=== PATIENT | female | born 1930 | race Caucasian/White ===

== ENCOUNTER 2018-05-17 19:46 | Inpatient (IN) | payer OTHER ==
[~2018-05-17] VITALS: Ht 157.5 cm; Wt 83.0 kg
[2018-05-17] MEDS: NACL 0.9% 1,000 ML IV SCH (00:30)
[2018-05-17 20:15] VITALS: BP 123/72
--- NOTE | 2018-05-17 20:30 | NUR ---
87/F BIB CAREGIVER, C/O 01/26 LLE PAIN, RADIATING THROUGHOUT LLE, CHRONIC PAIN, WORSENING FOR A FEW DAYS. PER PT'S CAREGIVER, PT'S MD WHO IS CONTRACTED HERE AND IN [place] SENT THE PT HER FOR DIRECT TRANSFER, ER ADMITTING UNAWARE. PT DENIES FALL OR TRAUMA. PT IS PARALYZED ON LEFT SIDE OF BODY, INCLUDING L ARM AND L LEG. +1 PITTING EDEMA NOTED, +CIRCULATION, NO OBVIOUS ABNORMALITY NOTED, PT WEARS A BRACE ON LLE. PT AOX4, WHEELCHAIR ASSISTED. LUNG SOUNDS CLEAR BL. BS ACTIVE X4, ABD SOFT ROUND NONTENDER. HX STROKE (1991), HTN, TUBAL LIGATION, BENIGN BREAST LUMP REMOVAL
[2018-05-17] MEDS ORDERED: NACL 0.9% 1,000 ML IV ONE (21:00)
--- NOTE | 2018-05-17 21:40 | NUR ---
COMPOUNDING AND FINISHING SUPERVISOR AT BEDSIDE. IV AND IVF STARTED, PT TOLERATED WELL.
--- NOTE | 2018-05-17 21:49 | NUR ---
US TECH AT BEDSIDE
[2018-05-17 21:50] LABS: BASOPHILS % (AUTO) 0.5 % (0.0-2.0); EOSINOPHILS # (AUTO) 0.4 K/uL (0-0.4); HEMATOCRIT 43.4 % (36-48); HEMOGLOBIN 14.2 g/dL (12.0-16.0); LYMPHOCYTES # (AUTO) 1.9 K/uL (2.5-16.5); MEAN CORPUSCULAR HEMOGLOBIN 30 pg (27-31); MEAN CORPUSCULAR HGB CONC 33 g/dL (33-37); MEAN CORPUSCULAR VOLUME 92.2 fL (80-94); MONOCYTES # (AUTO) 0.7 K/uL (0.8-1.0); MONOCYTES % (AUTO) 7.1 % (1.7-9.3); NEUTROPHILS # (AUTO) 6.5 K/uL (1.8-7.7); NEUTROPHILS % (AUTO) 68.4 % (42.2-75.2); PLATELET COUNT (AUTO) 254 K/uL (140-450); RED BLOOD CELL COUNT(AUTO) 4.71 MIL/uL (4.20-5.40); RED CELL DISTRIBUTION WIDTH 14.6 % (11.6-13.7); WHITE BLOOD COUNT (AUTO) 9.4 K/uL (4.8-10.8)
--- NOTE | 2018-05-17 22:00 | NUR ---
# 16 FR Urinary catheter inserted utilizing sterile technique. Immediate return of 50 ml clear yellow urine noted. Urine sample collected and sent to lab. Pt tolerated procedure well.
[2018-05-17 22:06] LABS: ANION GAP 9.1 (8-16); CARBON DIOXIDE 33.2 mmol/L (21-32); CHLORIDE 102 mmol/L (98-107); CREATININE 1.1 mg/dL (0.6-1.3); GLUCOSE 105 mg/dL (74-106); POTASSIUM 4.3 mmol/L (3.5-5.1); UREA NITROGEN, BLOOD 22 mg/dL (7-18)
[2018-05-17 22:07] LABS: SODIUM SERUM 140 mmol/L (136-145)
[2018-05-17 22:12] LABS: ALBUMIN 3.2 g/dL (3.4-5.0); ASPARTATE AMINOTRANSFERASE 13 U/L (15-37); TOTAL BILIRUBIN 0.3 mg/dL (0.0-1.0)
[2018-05-17 22:13] LABS: PROTHROMBIN TIME 9.7 secs (10.8-13.4)
[2018-05-17 22:45] LABS: APPEARANCE,URINE CLEAR (CLEAR); BILIRUBIN,URINE NEGATIVE (NEGATIVE); BLOOD, URINE NEGATIVE (NEGATIVE); COLOR,URINE YELLOW (YELLOW); PH,URINE 6.5 (5.0-9.0); UGLUCOSE NEGATIVE (NEGATIVE)
[2018-05-17 22:46] LABS: LEUKOCYTE ESTERASE ,URINE NEGATIVE (NEGATIVE); NITRITE, URINE NEGATIVE (NEGATIVE)
[2018-05-17 22:47] LABS: RBC,URINE 0-5 (RARE) /HPF (0-5); WBC,URINE 0-5 (RARE) /HPF (0-5)
[2018-05-17] MEDS ORDERED: LEVOFLOXACIN 500 MG/D5W PREMIX 100 ML IV ONE (22:55)
[2018-05-17] MEDS ORDERED: ONDANSETRON 4 MG/2 ML VIAL IM/IVP PRN (23:05)
[2018-05-17] MEDS ORDERED: ACETAMINOPHEN 325 MG TAB PO PRN (23:05)
[2018-05-17] MEDS ORDERED: DOCUSATE SODIUM 100 MG GELCAP PO PRN (23:05)
[2018-05-17] MEDS ORDERED: MORPHINE SULFATE 2 MG/ML SYR IVP PRN (23:05)
[2018-05-17] MEDS ORDERED: OSC500 PO (23:35)
[2018-05-17] MEDS ORDERED: SYSTANE EYE DROPS BOTH EYES (23:35)
[2018-05-17] MEDS ORDERED: MVI WITH MINERALS PO (23:35)
[2018-05-17] MEDS ORDERED: TYL650S PO (23:35)
[2018-05-17] MEDS ORDERED: HYDR-5122 PO (23:35)
[2018-05-17] MEDS ORDERED: XALOS OP (23:35)
[2018-05-17] MEDS ORDERED: BER PO (23:35)
--- NOTE | 2018-05-17 23:35 | NUR ---
DR ANG AT BEDSIDE TO EVALUATE PT. MADE MD AWARE THAT PT HAS A POLST FOR DNR. PT STATED THAT SHE WANTS TO BE FULL CODE. ENDORSED TO BIKE TECHNICIAN.
--- NOTE | 2018-05-17 23:35 | NUR ---
ADMITTED A 87 Y/O FEMALE FROM [facility] WITH CHIEF COMPLAINT OF LEG PAIN. TRANSFERRED PATIENT TO BED WITH 3 PEOPLE ASSIST. PATIENT AA0X4, SKIN INTACT. MRSA NASAL SWAB COLLECTED AND SENT TO THE LAB. ROUTINE ADMISSION CARE DONE AND CARRY OUT ORDERS. PERSONAL BELONGINGS AT BEDSIDE. FALL PRECAUTION APPLIED. ALL NEEDS ATTENDED. WILL CONTINUE TO MONITOR.
--- NOTE | 2018-05-17 23:40 | NUR ---
Patient will be admitted to care of DR. ELAINE. Admited to TELE. Will go to room 110B. Belongings list completed. Report to EVENS CARROLL.
[2018-05-17] MEDS ORDERED: GUAI-646 PO (23:42)
[2018-05-17] MEDS ORDERED: VALS40TA3 PO (23:42)
[2018-05-17] MEDS ORDERED: GABA100C PO (23:42)
[2018-05-17] MEDS ORDERED: BACL10TA4 PO (23:42)
[2018-05-17] MEDS ORDERED: FLONAS NS (23:42)
[2018-05-17] MEDS ORDERED: METO100T14 PO (23:42)
[2018-05-17] MEDS ORDERED: MAXIDE PO (23:42)
[2018-05-17] MEDS ORDERED: DEXT1DRO4 OP (23:42)
[2018-05-17] MEDS ORDERED: ALBUTEROL SULFATE/IPRATROPIU 3 ML SOL IH PRN (23:50)
[2018-05-18] MEDS ORDERED: HYDROcodone/APAP 5/325 MG 1 TAB TAB PO SCH
[2018-05-18] MEDS ORDERED: SYSTANE EYE BOTH EYES PRN
[2018-05-18 00:35] LABS: CHOL/HDL RATIO 3.7 (1-4.5); MAGNESIUM 1.9 mg/dL (1.8-2.4); PHOSPHORUS 3.7 mg/dL (2.5-4.9)
[2018-05-18 01:32] LABS: FREE T4 (FREE THYROXINE) 1.1 ng/dL (0.76-1.46); THYROID STIMULATING HORMONE 2.86 uIU/mL (0.34-3.74)
--- NOTE | 2018-05-18 02:00 | NUR ---
SEEN PATIENT RESTING ON BED WATCHING TV. ENCOURAGE PATIENT TO USE CALL LIGHT IF SHE NEED ASSISTANCE AND VERBALIZED UNDERSTANDING. FALL PRECAUTION APPLIED. CALL LIGHT WITHIN REACH. WILL CONTINUE TO MONITOR.
[2018-05-18] MEDS: HYDROcodone/APAP 7.5/325 MG 1 TAB PO PRN ×3 (02:37→17:06)
[2018-05-18 04:00] VITALS: BP 136/52
--- NOTE | 2018-05-18 04:00 | NUR ---
V/S TAKEN AND RECORDED. AM CARE DONE. ALL NEEDS ATTENDED. NO S/S OF DISTRESS NOTED AT THIS TIME. WILL CONTINUE TO MONITOR.
--- NOTE | 2018-05-18 04:30 | NUR ---
PATIENT REFUSE CT SCAN.
--- NOTE | 2018-05-18 04:30 | NUR ---
PATIENT REFUSE CT SCAN. DR. SAV HYMAN.
[2018-05-18] MEDS: BUDESONIDE 0.25 MG/2 ML NEBU INH SCH ×2 (06:40→18:39)
--- NOTE | 2018-05-18 07:25 | NUR ---
GAVE REPORT TO AM SHIFT RN AT BEDSIDE FOR CONTINUITY OF CARE. PATIENT IN STABLE CONDITION.
--- NOTE | 2018-05-18 07:26 | NUR ---
RECEIVED BEDSIDE REPORT FROM STRAIGHT KNIFE CUTTER MACHINE NURSE. PATIENT IS AWAKE, ALERT AND ORIENTEDX4. NO SIGNS OF DISTRESS ON 3L NC. SHE IS NON AMBULATORY. WHEELCHAIR AT BEDSIDE. FALL RISK PROTOCOL IN PLACE. SHE IS INCONTINENT. SKIN IS INTACT. R AC 20G INFUSING NS AT 60, CLEAN, DRY AND INTACT. REMOVED R WRIST 22G, INFILTRATED. TIP INTACT. BED IN LOW POSITION, CALL LIGHT WITHIN REACH. WILL CONTINUE TO MONITOR THE PATIENT
--- NOTE | 2018-05-18 07:52 | NUR ---
ABG REPORTED TO DR BENÍTEZ FIO2 DECREASED TO 2L N/C
[2018-05-18 08:00] VITALS: BP 139/47
--- NOTE | 2018-05-18 08:00 | NUR ---
PATIENT SALINE LOCKED. TO GO TO CT
--- NOTE | 2018-05-18 08:13 | NUR ---
PATIENT BACK FROM CT IN STABLE CONDITION. PATIENT REPOSITION TO EAT HER BREAKFAST.
--- NOTE | 2018-05-18 08:40 | NUR ---
PATIENT HAS BEEN SCREENED AND CATEGORIZED MODERATE NUTRITION RISK. PATIENT WILL BE SEEN WITHIN 3-5 DAYS OF ADMISSION. 05/20/18 05/22/[address]
[2018-05-18] MEDS ORDERED: NON-FORMULARY ITEM (Dextran 70/Hypromellose (Artificial Tears) 1 EACH) OP SCH (09:00)
[2018-05-18] MEDS: guaiFENesin 600 MG TABER PO SCH (09:16)
[2018-05-18] MEDS: VITAMIN B COMPLEX W/C 1 TAB PO SCH (09:16)
[2018-05-18] MEDS: CALCIUM CARBONATE 500 MG TAB PO SCH (09:17)
[2018-05-18] MEDS: METOPROLOL SUCCINATE 50 MG TABER PO SCH (09:17)
[2018-05-18] MEDS: BACLOFEN 10 MG TAB PO SCH (09:17)
[2018-05-18] MEDS: GABAPENTIN 100 MG CAP PO SCH ×2 (09:17→20:37)
[2018-05-18] MEDS: FLUTICASONE NASAL 50 MCG/ACTUATION 16 GM BTL NS SCH (09:18)
--- NOTE | 2018-05-18 09:23 | NUR ---
ADMINISTERED MEDS. PATIENT TOLERATED WELL. NO SIGNS OF DISTRESS. WILL CONTINUE TO MONITOR THE PATIENT
--- NOTE | 2018-05-18 10:21 | NUR ---
PATIENT IS SLEEPING. NO SIGNS OF DISTRESS ON 2L NC. BED IN LOW POSITION. CALL LIGHT WITHIN REACH. WILL CONTINUE TO MONITOR
--- NOTE | 2018-05-18 11:12 | NUR ---
PATIENT STILL SLEEPING. BED IN LOW POSITION. CALL LIGHT WITHIN REACH. WILL CONTINUE TO MONITOR
[2018-05-18 12:00] VITALS: BP 142/63
[2018-05-18] MEDS ORDERED: REFRESH OP SCH (13:00)
--- NOTE | 2018-05-18 13:13 | NUR ---
PATIENT WANTS TO GO HOME. SHE IS TIRED OF BEING POKED, SHE SAID WE TOOK ALL HER BLOOD ALREADY AND SHE IS ALWAYS GETTING BOTHERED. SHE WANTS TO TALK TO THE DR TO TRANSFER BACK TO ALF
--- NOTE | 2018-05-18 13:40 | NUR ---
SPOKE TO THE PATIENT TO TRY TO DO THE ECHO HOWEVER PT IS VERY AGITATED AND KEPT SAYING SHE'S "TIRED OF ALL THESE TESTS AND ULTRASOUNDS BEING DONE" AND THAT SHE'S IN PAIN. I NOTIFIED DR. DUNBAR ABOUT THE SITUATION. PT SEEMS TOO AGITATED TO HAVE THE ECHO DONE AT THIS TIME, ALL SHE WANTS IS TO GO HOME.
[2018-05-18 14:43] LABS: BASOPHILS % (AUTO) 0.6 % (0.0-2.0); EOSINOPHILS # (AUTO) 0.2 K/uL (0-0.4); EOSINOPHILS % (AUTO) 2.9 % (0.0-4.0); HEMATOCRIT 42.9 % (36-48); HEMOGLOBIN 13.9 g/dL (12.0-16.0); LYMPHOCYTES # (AUTO) 1.4 K/uL (2.5-16.5); LYMPHOCYTES % (AUTO) 20.6 % (20.5-51.1); MEAN CORPUSCULAR HEMOGLOBIN 30 pg (27-31); MEAN CORPUSCULAR HGB CONC 32 g/dL (33-37); MEAN CORPUSCULAR VOLUME 92.5 fL (80-94); MONOCYTES # (AUTO) 0.4 K/uL (0.8-1.0); MONOCYTES % (AUTO) 5.9 % (1.7-9.3); NEUTROPHILS # (AUTO) 4.9 K/uL (1.8-7.7); PLATELET COUNT (AUTO) 212 K/uL (140-450); RED BLOOD CELL COUNT(AUTO) 4.64 MIL/uL (4.20-5.40); RED CELL DISTRIBUTION WIDTH 14.3 % (11.6-13.7)
--- NOTE | 2018-05-18 14:51 | NUR ---
PT REQUESTED TO GIVE HER SON ROSHAN A CALL IN [place] (#:[phone]) TO LET HIM KNOW THAT SHE IS BEING ADMITTED HERE IN [facility] AND WANTS TO SPEAK TO HIM. SPOKE WITH ROSHAN'S [id number] (PREM) AND STATED THAT ROSHAN IS WITH A CLIENT RIGHT NOW BUT SHE WILL RELAY THE MESSAGE. PT MADE AWARE, VERBALIZED UNDERSTANDING.
[2018-05-18 14:57] LABS: ANION GAP 8.1 (8-16); CARBON DIOXIDE 33.9 mmol/L (21-32); CHLORIDE 103 mmol/L (98-107); SODIUM SERUM 141 mmol/L (136-145)
[2018-05-18 14:58] LABS: GLUCOSE 99 mg/dL (74-106); MAGNESIUM 1.7 mg/dL (1.8-2.4); PHOSPHORUS 3.4 mg/dL (2.5-4.9); UREA NITROGEN, BLOOD 18 mg/dL (7-18)
--- NOTE | 2018-05-18 15:38 | NUR ---
PT'S SON ROSHAN GUZMAN CALLED BACK BUT PT IS SLEEPING AT THIS TIME. ROSHAN STATED HE WILL GIVE HIS MOTHER A CALL AROUND DINNER TIME.
[2018-05-18 16:00] VITALS: BP 142/63
[2018-05-18] MEDS: NACL 0.9% 1,000 ML IV SCH (16:26)
--- NOTE | 2018-05-18 17:10 | NUR ---
ADMINISTERED PRN PAIN MEDS. PATIENT TOLERATED WELL. PLACED WARM BLANKETS. PATIENT HAPPY TO GET WARM BLANKETS. BED IN LOW POSITION. CALL LIGHT WITHIN REACH. WILL CONTINUE TO MONITOR THE PATIENT
--- NOTE | 2018-05-18 18:30 | NUR ---
PATIENT TALKING TO HER SON ROSHAN ON THE PHONE, NO SIGNS OF DISTRESS. WILL CONTINUE TO MONITOR.
--- NOTE | 2018-05-18 18:40 | NUR ---
PATIENT REFUSED HHN TREATMENT, NO SOB NOTED
--- NOTE | 2018-05-18 19:20 | NUR ---
RECEIVED BEDSIDE REPORT FROM EVENS SEN. PATIENT IN BED, ON 2 L NC, NO SIGNS OF ACUTE DISTRESS, PROTECTIVE EYEWEAR FROM POST CATARACT SURGERY ON. IV IN RIGHT AC, 20 G, INFUSING ND AT 60 ML/HR, DRESSING CLEAN AND INTACT. V/S TAKEN ALL WITHIN PATIENTS BASELINE, DENIES PAIN AT THIS TIME, NOTED LEFT SIDED WEAKNESS FROM HX OF CVA, ON FALL PRECAUTIONS, UPDATED BOARD, EXPLAINED PLAN OF CARE, CALL LIGHT WITHIN REACH, BED ALARM ON, WILL START FREQUENT CHECKS.
--- NOTE | 2018-05-18 19:20 | NUR ---
GAVE BEDSIDE REPORT TO SALES ORDER ADMINISTRATOR NURSE. PATIENT ENDORSED IN STABLE CONDITION
[2018-05-18 20:00] VITALS: BP 117/70
[2018-05-18] MEDS: LATANOPROST 0.005% OP 2.5 ML BTL OP SCH (20:38)
--- NOTE | 2018-05-18 20:40 | NUR ---
DUE MEDICATIONS GIVEN, PATIENT TOLERATED WELL, WILL CONTINUE TO MONITOR.
--- NOTE | 2018-05-18 23:36 | NUR ---
PATIENT ASLEEP IN BED, NO SIGNS OF DISTRESS, V/S TAKEN, ALL WITHIN PATIENTS BASELINE, CALL LIGHT WITHIN REACH, WILL CONTINUE TO MONITOR.
[2018-05-19] VITALS: BP 137/70
--- NOTE | 2018-05-19 02:00 | NUR ---
PATIENT SLEEPING IN BED, NO DISTRESS NOTED.
[2018-05-19 04:00] VITALS: BP 115/65
--- NOTE | 2018-05-19 04:30 | NUR ---
AWAKE IN BED, NO SIGNS OF DISTRESS, CALL LIGHT WITHIN REACH.
[2018-05-19 06:23] LABS: T4 (THYROXINE) 8.2 ug/dL (4.5-12.0)
[2018-05-19 07:25] LABS: BASOPHILS % (AUTO) 0.3 % (0.0-2.0); EOSINOPHILS # (AUTO) 0.2 K/uL (0-0.4); EOSINOPHILS % (AUTO) 3.3 % (0.0-4.0); HEMATOCRIT 39.6 % (36-48); HEMOGLOBIN 13.1 g/dL (12.0-16.0); LYMPHOCYTES # (AUTO) 1.4 K/uL (2.5-16.5); LYMPHOCYTES % (AUTO) 18.1 % (20.5-51.1); MEAN CORPUSCULAR HEMOGLOBIN 31 pg (27-31); MEAN CORPUSCULAR HGB CONC 33 g/dL (33-37); MEAN CORPUSCULAR VOLUME 92.9 fL (80-94); MONOCYTES # (AUTO) 0.4 K/uL (0.8-1.0); MONOCYTES % (AUTO) 5.7 % (1.7-9.3); NEUTROPHILS # (AUTO) 5.5 K/uL (1.8-7.7); NEUTROPHILS % (AUTO) 72.6 % (42.2-75.2); PLATELET COUNT (AUTO) 182 K/uL (140-450); RED BLOOD CELL COUNT(AUTO) 4.26 MIL/uL (4.20-5.40); RED CELL DISTRIBUTION WIDTH 13.9 % (11.6-13.7); WHITE BLOOD COUNT (AUTO) 7.6 K/uL (4.8-10.8)
[2018-05-19] MEDS: BUDESONIDE 0.25 MG/2 ML NEBU INH SCH ×2 (07:30→19:30)
--- NOTE | 2018-05-19 07:34 | NUR ---
ENDORSED PATIENT TO DAY SHIFT NURSE, PATIENT STABLE.
--- NOTE | 2018-05-19 07:35 | NUR ---
RECEIVED BEDSIDE REPORT FROM COFFEE MACHINE TECHNICIAN NURSE. PATIENT IS AWAKE, ALERT AND ORIENTEDX4. PATIENT UNABLE TO AMBULATE, WHEELCHAIR BOUND. FALL RISK PROTOCOL. SKIN IS INTACT. IV ON R AC 20G INFUSING NS AT 60. CLEAN, DRY AND INTACT. TELE MONITOR IN PLACE. BED IN LOW POSITION. CALL LIGHT WITHIN REACH. WILL CONTINUE TO MONITOR THE PATIENT.
[2018-05-19 07:41] LABS: ANION GAP 10.3 (8-16); CARBON DIOXIDE 28.6 mmol/L (21-32); CHLORIDE 106 mmol/L (98-107); CREATININE 0.9 mg/dL (0.6-1.3); GLUCOSE 100 mg/dL (74-106); POTASSIUM 3.9 mmol/L (3.5-5.1); SODIUM SERUM 141 mmol/L (136-145); UREA NITROGEN, BLOOD 16 mg/dL (7-18)
[2018-05-19 07:54] LABS: MAGNESIUM 1.6 mg/dL (1.8-2.4); PHOSPHORUS 3.1 mg/dL (2.5-4.9)
--- NOTE | 2018-05-19 07:55 | NUR ---
PATIENT RESTING AND AWAKE. REFUSED PULMICORT TX, BUT VERBALIZED FEELING NO SOB OR DISTRESS. VITALS STABLE: 94% ON 2 NC (28%), PULSE 66, RATE 16, DIMINISHED BREATH SOUNDS WITH GOOD CHEST RISE.
[2018-05-19 08:00] VITALS: BP 138/63
[2018-05-19] MEDS: guaiFENesin 600 MG TABER PO SCH (08:50)
[2018-05-19] MEDS: CALCIUM CARBONATE 500 MG TAB PO SCH (08:51)
[2018-05-19] MEDS: METOPROLOL SUCCINATE 50 MG TABER PO SCH (08:51)
[2018-05-19] MEDS: VITAMIN B COMPLEX W/C 1 TAB PO SCH (08:52)
[2018-05-19] MEDS: BACLOFEN 10 MG TAB PO SCH (08:53)
[2018-05-19] MEDS: GABAPENTIN 100 MG CAP PO SCH ×2 (08:53→21:17)
[2018-05-19] MEDS: FLUTICASONE NASAL 50 MCG/ACTUATION 16 GM BTL NS SCH (08:53)
[2018-05-19] MEDS: NACL 0.9% 1,000 ML IV SCH ×2 (08:54→21:30)
[2018-05-19] MEDS: HYDROcodone/APAP 7.5/325 MG 1 TAB PO PRN (09:10)
--- NOTE | 2018-05-19 09:12 | NUR ---
ADMINISTERED MEDS. PATIENT TOLERATED WELL. PT IN THE ROOM WORKING W THE PATIENT. WILL CONTINUE TO MONITOR
[2018-05-19] MEDS ORDERED: SHARK OIL/PHENYLEPHRINE 60 GM TUBE TP PRN (10:40)
[2018-05-19] MEDS ORDERED: MAG SULF 2000 MG/WATER PREMIX 50 ML IV ONE (11:00)
--- NOTE | 2018-05-19 11:00 | NUR ---
PATIENT IS SLEEPING. NO SIGNS OF DISTRESS. WILL CONTINUE TO MONITOR
[2018-05-19] MEDS ORDERED: ACET-1182 PO (11:06)
[2018-05-19] MEDS ORDERED: PHEN1OIN TP (11:06)
[2018-05-19] MEDS ORDERED: DOCU-299 PO (11:06)
[2018-05-19] MEDS ORDERED: CILO100T PO (11:49)
[2018-05-19 12:00] VITALS: BP 141/51
--- NOTE | 2018-05-19 12:30 | NUR ---
PATIENT REQUESTED HEMORRHOID MEDICATION. CALLED DR DUNBAR SHE PUT AN ORDER IN. PATIENT SAID SHE DOES NOT WANT IT AT THIS TIME. SHE SAID SHE WILL LET ME KNOW WHEN TO ADMINISTER PRN HEMORRHOID MED.
[2018-05-19] MEDS: MAGNESIUM SULFATE 1GM in DEXTROSE 5% 100 ML PREMIX IV SCH ×2 (12:39→13:52)
--- NOTE | 2018-05-19 13:55 | NUR ---
ADMINISTERED SECOND BAG OF MAG. PATIENT TOLERATED WELL. WILL CONTINUE TO MONITOR THE PATIENT
--- NOTE | 2018-05-19 14:56 | NUR ---
1429 SPOKE WITH BRIT KAMARA AT [facility] AND INFORMED HER THAT PT HAS AN ORDER TO DISCHARGE BACK TO FACILITY TODAY. STATED SHE NEEDS TO SPEAK WITH DR MADRIGAL PTS PCP BEFORE SHE CAN ACCEPT PT BACK TODAY STATED THAT TOMORROW WOULD BE BETTER TO SEND PT BACK. DR DUNBAR INFORMED THAT SN[facility] WILL ACCEPT BACK TOMORROW.
--- NOTE | 2018-05-19 15:12 | NUR ---
SPOKE WITH ROB LUCIA AND AUTH#[id number] IS AUTH FOR TRANSPORTATION.
--- NOTE | 2018-05-19 15:40 | NUR ---
ADMINISTERED PRN HEMORRHOID MED, PATIENT TOLERATED WELL. WILL CONTINUE TO MONITOR THE PATIENT
--- NOTE | 2018-05-19 15:49 | NUR ---
Municipal Bond Trader Note: I faxed patient's medical informaiton to [facility], fax number .
[2018-05-19 16:00] VITALS: BP 120/63
--- NOTE | 2018-05-19 17:42 | NUR ---
NEW IV ON L FA 22G INFUSING NS AT 60. CLEAN, DRY AND INTACT. OTHER IV INFILTRATED, IV TIP IS INTACT
[2018-05-19] MEDS: CILOSTAZOL 100 MG TAB PO SCH (18:24)
--- NOTE | 2018-05-19 18:26 | NUR ---
ADMINISTERED MEDS. PATIENT TOLERATED WELL. WILL CONTINUE TO MONITOR THE PATIENT
--- NOTE | 2018-05-19 19:25 | NUR ---
GAVE BEDSIDE REPORT TO ROUND KILN DRAWER NURSE. PATIENT ENDORSED IN STABLE CONDITION.
--- NOTE | 2018-05-19 19:26 | NUR ---
RECEIVED PT IN STABLE CONDITION FROM HI NURSE. AWAKE,ALERT AND ORIENTED X4. BEDREST. ON MED SURG. NO CO PAIN NOR DISCOMFORT NOTED AT THIS TIME. O2 2L/NC. WITH IVF INFUSING WELL ON THE RT FA#22. CLEAR AND PATENT. BED ON LOWEST POSITION . FREQUENT ROUNDS NEEDED. CALL LIGHT PLACED WITHIN EASY REACH. WILL CONTINUE TO MONITOR.
--- NOTE | 2018-05-19 20:00 | NUR ---
PATIENT REFUSED HHN TX, SAID SHE IS GOING HOME TOMORROW
--- NOTE | 2018-05-19 21:00 | NUR ---
ASKED PT TO BE CHECKED AND CHANGED DIAPER. PT REFUSED .SHE SAID SHE WANTS TO SLEEP.
[2018-05-19] MEDS: LATANOPROST 0.005% OP 2.5 ML BTL OP SCH (21:18)
[2018-05-20 00:05] VITALS: BP 123/55
--- NOTE | 2018-05-20 00:15 | NUR ---
PT INCONTINENT OF URINE. CLEANED AND KEPT DRY. REPOSITIONED FOR COMFORT.
[2018-05-20] MEDS: NACL 0.9% 1,000 ML IV SCH ×2 (01:01→05:38)
--- NOTE | 2018-05-20 01:30 | NUR ---
MADE ROUNDS. PT SLEEPING WELL. NO S/S OF ANY DISTRESS NOTED.
--- NOTE | 2018-05-20 02:30 | NUR ---
PT ASLEEP. NO S/S OF ANY DISCOMFORT NOR PAIN NOTED.
--- NOTE | 2018-05-20 04:30 | NUR ---
PT AWAKE. WITH NO C/O ANY DISCOMFORT NOTED. INCONTINENT URINE. CLEANED AND KEPT DRY. REPOSITIONED FOR COMFORT.
--- NOTE | 2018-05-20 06:30 | NUR ---
PT INCONTINENT OF URINE. CLEANED AND KEPT DRY.
[2018-05-20] MEDS: CILOSTAZOL 100 MG TAB PO SCH (06:45)
[2018-05-20] MEDS: BUDESONIDE 0.25 MG/2 ML NEBU INH SCH (06:53)
--- NOTE | 2018-05-20 07:15 | NUR ---
ENDORSED PT IN STABLE CONDITION TO AM NURSE FOR CONTINUITY OF CARE.
--- NOTE | 2018-05-20 07:20 | NUR ---
RECEIVED BEDSIDE REPORT FROM HIGH SCHOOL PRINCIPAL RN, PT IS AAOX3, ON 2 L O2 NC, NO SIGNS OF ACUTE DISTRESS, PROTECTIVE EYEWEAR FROM POST CATARACT SURGERY ON. IV IN RIGHT FA, 22 G, PATENT AND INTACT. C/O PAIN, AT THIS TIME, NOTED LEFT SIDED WEAKNESS FROM HX OF CVA, ON FALL PRECAUTIONS, UPDATED BOARD, PLACE OF CARE DISCUSSES, PT VERBALIZED UNDERSTANDING, CALL LIGHT WITHIN REACH, BED ALARM ON.
[2018-05-20 08:00] VITALS: BP 135/65
[2018-05-20] MEDS: GABAPENTIN 100 MG CAP PO SCH (08:44)
[2018-05-20] MEDS: CALCIUM CARBONATE 500 MG TAB PO SCH (08:44)
[2018-05-20] MEDS: guaiFENesin 600 MG TABER PO SCH (08:44)
[2018-05-20] MEDS: VITAMIN B COMPLEX W/C 1 TAB PO SCH (08:45)
[2018-05-20] MEDS: BACLOFEN 10 MG TAB PO SCH (08:45)
[2018-05-20] MEDS: METOPROLOL SUCCINATE 50 MG TABER PO SCH (08:45)
[2018-05-20] MEDS: FLUTICASONE NASAL 50 MCG/ACTUATION 16 GM BTL NS SCH (08:46)
[2018-05-20] MEDS: HYDROcodone/APAP 7.5/325 MG 1 TAB PO PRN (08:53)
--- NOTE | 2018-05-20 10:35 | NUR ---
CM NOTE PER [facility] ADMISSIONS PH# [phone], PATIENT CAN GO TO [address] MADR[address]AL, NUMBER TO CALL FOR REPORT PH# [phone] EXT [phone]. PER [facility], PATIENT WILL BE PICKED UP AT 12:30 NOON TODAY GOING TO [facility] IN [place]. ANKUR HORNER AWARE.
--- NOTE | 2018-05-20 11:20 | NUR ---
REPORT GIVEN TO ROSHAN, RECEIVING DR IS DR OTT.
--- NOTE | 2018-05-20 12:25 | NUR ---
IV DC'D, TIP INTACT, PRESSURE APPLIED.
--- NOTE | 2018-05-20 12:40 | NUR ---
[facility] TORNADO CHASER IS HERE, PT LEFT IN STABLE CONDITION, ON 2L O2 VIA NC. PT LEFT WITH HER WHEELCHAIR, GLASSES, AND CLOTHES, SHOES, AND HER OWN OXYGEN TANK.
== END 2018-05-20 12:45 | DRG 91 ==
LOC: MED 19:46 → MTU 23:04
PROVIDERS: ADMIT General Practice; ATTEND General Practice
DX: G96.19 Other disorders of meninges, not elsewhere classified (principal); N17.0 Acute kidney failure with tubular necrosis; N39.0 Urinary tract infection, site not specified; E44.1 Mild protein-calorie malnutrition; J98.11 Atelectasis; I69.954 Hemiplegia and hemiparesis following unspecified cerebrovascular disease affecting left non-dominant side; G62.9 Polyneuropathy, unspecified; M21.612 Bunion of left foot; G89.29 Other chronic pain; M62.838 Other muscle spasm; E86.0 Dehydration; K44.9 Diaphragmatic hernia without obstruction or gangrene; E04.1 Nontoxic single thyroid nodule; K40.90 Unilateral inguinal hernia, without obstruction or gangrene, not specified as recurrent; K42.9 Umbilical hernia without obstruction or gangrene; E83.42 Hypomagnesemia; I73.9 Peripheral vascular disease, unspecified; E66.9 Obesity, unspecified; Z68.33 Body mass index [BMI] 33.0-33.9, adult; Z79.899 Other long term (current) drug therapy; Z98.49 Cataract extraction status, unspecified eye; Z98.51 Tubal ligation status
CPT/HCPCS: 36415; 36600; 71045; 71250; 76604; 80048; 80053; 81001; 82140; 82150; 82550; 82803; 83036; 83605; 83615; 83690; 83735; 83880; 84100; 84436; 84439; 84443; 84484; 85025; 85610; 85730; 87040; 87081; 87086; 93005; 93925; 93971; 96361; 96365; 97116; 97530; 99285; C1758; J1644; J1956; J7030; J7626; Q0092